=== PATIENT | female | born 2005 | race Caucasian/White ===

== ENCOUNTER 2025-05-13 14:02 | Emergency (ER) | payer BC | END 2025-05-13 15:19 | disposition home or self-care (01) | LOC: CSHERS 14:02 | DX: T21.22XA Burn of second degree of abdominal wall, initial encounter (principal); T24.012A Burn of unspecified degree of left thigh, initial encounter; T31.0 Burns involving less than 10% of body surface; X12.XXXA Contact with other hot fluids, initial encounter; Y93.G3 Activity, cooking and baking | CPT/HCPCS: 96372; 99283; J2270; Q0162 ==